=== PATIENT | female | born 1985 | race American Indian/Alaskan Native ===

== ENCOUNTER 2019-06-22 10:18 | Emergency (ER) | payer OTHER ==
[2019-06-22] MEDS ORDERED: SODIUM CHLORIDE 0.9% 1000 ML 1,000 ML IV ONE (11:16)
[2019-06-22] MEDS ORDERED: SODIUM CHLORIDE 0.9% 1000 ML 1,000 ML ONE (11:16)
[2019-06-22 12:17] VITALS: BP 117/72
== END 2019-06-22 13:10 | disposition home or self-care (01) ==
LOC: ED 10:18
DX: J02.9 Acute pharyngitis, unspecified (principal); R11.0 Nausea; R19.7 Diarrhea, unspecified; R06.02 Shortness of breath
CPT/HCPCS: 96360; 99282; J7030

== ENCOUNTER 2020-07-17 18:59 | Emergency (ER) | payer OTHER | END 2020-07-18 | disposition left against medical advice (07) | LOC: ED 18:59 | DX: Z53.21 Procedure and treatment not carried out due to patient leaving prior to being seen by health care provider (principal) ==